=== PATIENT | female | born 2000 | race Caucasian/White ===

== ENCOUNTER 2022-05-12 13:45 | Emergency (ER) | payer BC, SELFPAY ==
[2022-05-12 14:05] VITALS: BP 132/80; PULSE 83; RESP 18; TEMP 36.6; O2SAT 99; BMI 27.7
--- NOTE | 2022-05-12 14:40 | EXP.UTC ---
Discharge Plan Disposition Patient Disposition: Home, Self-Care Condition: Good Prescriptions Prescriptions: New cephalexin [cephalexin] 500 mg tablet 500 mg PO BID 7 Days Qty: 14 0RF No Action cefdinir 300 MG capsule 300 mg PO BID Referrals Follow up/Referrals: Adin Lane MD [Primary Care Provider] - See instructions Activity Restrictions/Add. Instructions Additional Instructions/Restrictions: Increase fluids, water and not soda or tea. Can drink cranberry juice or cranberry extract. White front to back Wear cotton underwear Empty bladder after intercourse Start antibiotics immediately and make sure you take the full course although you may start to see improvement over the next 48 hours. You can eat yogurt or take probiotics to decrease diarrhea or yeast infection caused by the antibiotic Be sure to follow-up anytime for new or worsening symptoms in 48 hours for wound urine culture results be sure to let you PCP no recent urine for culture so they can request records and ensure that you have appropriate antibiotic if you are not getting better or getting worse. If symptoms worsen or do not improve return or be seen in the ER. Follow-up with primary care this week. Clinical Impressions Clinical Impression: UTI (urinary tract infection) Stand Alone Forms Stand Alone Forms: Work/School Release Instructions Patient Instructions: DI for Urinary Tract Infection (UTI) Discharge ED Provider: Zari ([facility])Ej [facility] [place] HPI General Stated complaint: back pain, no accident Mode of Arrival: Ambulatory Source of Information: Patient Limitations: No Limitations Time Seen by Provider: 05/12/22 14:40 Description of Symptoms (Recalled from Triage Doc. by RN): PATIENT C/O LOWER BACK PAIN THAT STARTED LAST NIGHT WHILE SHE WAS AT WORK HEENT Symptoms (Recalled from RN notes): No Resp Symptoms (Recalled from RN notes): No Skin Symptoms (Recalled from RN notes): No MS Symptoms (Recalled from RN notes): Yes Functional Status (Recalled from RN notes): WNL History of Present Illness Provider Complaint: 22 yr old female presents for low back pain that started last pm and became worse though out the night at work Related Data Home Medications Medication Instructions Recorded Confirmed cefdinir 300 mg capsule 300 mg PO BID EAR INFECTION 06/15/18 06/15/18 Previous Rx's Medication Instructions Recorded cephalexin 500 mg tablet 500 mg PO BID 7 days #14 tabs 05/12/22 Allergies Allergy/AdvReac Type Severity Reaction Status Date / Time lisinopril Allergy Verified 05/12/22 14:20 Sulfa (Sulfonamide Allergy Verified 06/15/18 09:40 Antibiotics) Worker's Comp Is this a Worker's Comp case?: No [facility] Disclaimer: The information contained in this section may have been updated after the patient was seen, as this information can be updated by other users. Social History , HIGHWAY DESIGN ENGINEER) Smoking Status: Smoker, status unknown alcohol intake: never current occupational status: other Travel in the last 8 weeks: None ROS Obtained: Yes All systems reviewed & no additional complaints except as documented Constitutional Constitutional: Reports system reviewed and no additional complaints, except as documented and Reports as per HPI Eyes Eyes: Reports system reviewed and no additional complaints, except as documented ENT Ears, Nose, Mouth, and Throat: Reports system reviewed and no additional complaints, except as documented Cardiovascular Cardiovascular: Reports system reviewed and no additional complaints, except as documented Respiratory Respiratory: Reports system reviewed and no additional complaints, except as documented Gastrointestinal Gastrointestingal: Reports system reviewed and no additional complaints, except as documented Genitourinary Female Genitourinary: Reports system reviewed and no additional complaints, except as documented a
[2022-05-12 14:50] VITALS: BP 132/80; PULSE 83; RESP 18; TEMP 36.6; O2SAT 99
[2022-05-12 14:54] LABS: Apearance,Urine Clear (Clear); Blood, Urine Negative (Negative); Color,Urine Yellow (Yellow); Glucose,Urine (UA) Negative (Negative); Ketones,Urine Negative (Negative); Protein,Urine Negative (Negative); Specific Gravity, Urine 1.025 (1.005-1.030)
[2022-05-12 14:55] LABS: UTC Pregnancy Test, Urine Negative (Negative)
[2022-05-12 14:55] LABS: Bilirubin,Urine Negative (Negative); UTC Leukocyte Esterase,Urine Trace (Negative); UTC Nitrate,Urine Negative (Negative); Urobilinogen,Urine 0.2 EU/dl (0.2)
== END 2022-05-12 14:53 | disposition home or self-care (01) ==
PROVIDERS: Emergency Provider Nurse Practitioner Family; PCP Emergency Medicine
DX: N39.0 Urinary tract infection, site not specified (principal); M54.50 Low back pain, unspecified
CPT/HCPCS: 81003; 81025; 87086; 99212; 99214; G0463

== ENCOUNTER 2022-05-14 18:33 | Emergency (ER) | payer BC, SELFPAY ==
[2022-05-14 18:35] VITALS: BP 149/106; PULSE 104; RESP 18; TEMP 36.6; O2SAT 97; BMI 38.5
--- NOTE | 2022-05-14 19:08 | PC.NURSE ---
notified ER MD of pt presenting s/s, no new orders obtained at this time.
[2022-05-14 19:30] VITALS: BP 162/104; PULSE 106; RESP 20; O2SAT 96
[2022-05-14 20:01] VITALS: BP 131/82; PULSE 91; RESP 18; O2SAT 96
[2022-05-14 20:30] VITALS: BP 146/72; PULSE 106; RESP 18; O2SAT 97
--- NOTE | 2022-05-14 20:45 | CT_ITS ---
PROCEDURE INFORMATION: Exam: CT Lumbar Spine Without Contrast Exam date and time: 05/14/2022 9:36 PM Age: 22 years old Clinical indication: Low back pain; Patient HX: C/O pain since Saturday; Additional info: Abdominal pain TECHNIQUE: Imaging protocol: Computed tomography of the lumbar spine without contrast. Radiation optimization: All CT scans at this facility use at least one of these dose optimization techniques: automated exposure control; mA and/or kV adjustment per patient size (includes targeted exams where dose is matched to clinical indication); or iterative reconstruction. REPORTING DATA: Count of CT and Cardiac NM exams in prior 12 months: This patient has received [address] and 0 known cardiac nuclear medicine studies in the 12 months prior to the current study. COMPARISON: CT ABDOMEN PELVIS WO CON 05/14/2022 9:33 PM FINDINGS: Bones/joints: Alignment near anatomic. No acute displaced fracture. Mild multilevel degenerative disc disease is present without high-grade compromise of the spinal canal. 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 Soft tissues: Unremarkable. IMPRESSION: No acute findings.
--- NOTE | 2022-05-14 20:45 | CT_ITS ---
PROCEDURE INFORMATION: Exam: CT Abdomen And Pelvis Without Contrast Exam date and time: 05/14/2022 9:33 PM Age: 22 years old Clinical indication: Abdominal pain TECHNIQUE: Imaging protocol: Computed tomography of the abdomen and pelvis without contrast. Radiation optimization: All CT scans at this facility use at least one of these dose optimization techniques: automated exposure control; mA and/or kV adjustment per patient size (includes targeted exams where dose is matched to clinical indication); or iterative reconstruction. REPORTING DATA: Count of CT and Cardiac NM exams in prior 12 months: This patient has received [address] and 0 known cardiac nuclear medicine studies in the 12 months prior to the current study. COMPARISON: CT LUMBAR SPINE WO CON 05/14/2022 9:36 PM FINDINGS: Liver: Normal. No mass. Gallbladder and bile ducts: Normal. No calcified stones. No ductal dilation. Pancreas: Normal. No ductal dilation. Spleen: Normal. No splenomegaly. Adrenal glands: Normal. No mass. Kidneys and ureters: Normal. No hydronephrosis. Stomach and bowel: Wall thickening versus underdistention in the transverse colon and proximal descending colon. No bowel obstruction. Appendix: No evidence of appendicitis. Intraperitoneal space: Unremarkable. No free air. No significant fluid collection. Vasculature: Unremarkable. No abdominal aortic aneurysm. Lymph nodes: Unremarkable. No enlarged lymph nodes. Urinary bladder: Mild bladder wall thickening with incomplete distention. Reproductive: Unremarkable as visualized. Bones/joints: Unremarkable. No acute fracture. Soft tissues: Unremarkable. IMPRESSION: 1. Underdistention versus wall thickening in the mid colon. Correlate for possible mild colitis. 2. Possible cystitis. Correlate with urinalysis.
--- NOTE | 2022-05-14 20:46 | HMH.EDGENADL ---
Discharge Plan Disposition Patient Disposition: Home, Self-Care Prescriptions Prescriptions: New prednisone [prednisone] 20 mg tablet 20 mg PO BID Qty: 10 0RF ketorolac 10 mg tablet 10 mg PO Q8H 3 Days Qty: 9 0RF No Action cephalexin [cephalexin] 500 mg tablet 500 mg PO BID 7 Days Qty: 14 0RF cefdinir 300 MG capsule 300 mg PO BID Referrals Follow up/Referrals: Provider,Referral, MD [Primary Care Provider] - See instructions Clinical Impressions Clinical Impression: Lumbar back pain, Sacro-iliac pain Instructions Patient Instructions: DI for Low Back Pain Discharge ED Provider: Brittnee (ED)[facility] Adult HPI General Chief complaint: PAIN Stated complaint: lower back pain, no known accident Time Seen by Provider: 05/14/22 20:46 Mode of Arrival: Ambulatory Source of Information: Patient and Medical Record Limitations: No Limitations Description of Symptoms (Recalled from ER Triage Doc. by RN): Pt reports lower back pain since saturday approx 9:45pm while at work. Pt reports unable to pinpoint a time of injury. States she was on a break at work when she noticed pain. Pt reports was seen in [facility] Saturday diagnosed with UTI. Pt reports pain is constant in nature in lower back but worse when trying to bend over or when she bend her neck down. History of Present Illness HPI narrative: localized lumbar pain since saturday with no def injury - no fever/rash /no gu or health information technologist sx/ saw [facility] and dx with possible uti - worse with certain mov Onset (ago): day(s) Location: back Severity: moderate Consistency: constant Associated symptoms: denies other symptoms Related Data Home Medications Medication Instructions Recorded Confirmed cefdinir 300 mg capsule 300 mg PO BID EAR INFECTION 06/15/18 06/15/18 Previous Rx's Medication Instructions Recorded cephalexin 500 mg tablet 500 mg PO BID 7 days #14 tabs 05/12/22 ketorolac 10 mg tablet 10 mg PO Q8H 3 days #9 tabs 05/14/22 prednisone 20 mg tablet 20 mg PO BID #10 tabs 05/14/22 Allergies Allergy/AdvReac Type Severity Reaction Status Date / Time lisinopril Allergy Verified 05/12/22 14:20 Sulfa (Sulfonamide Allergy Verified 06/15/18 09:40 Antibiotics) [facility] Disclaimer: The information contained in this section may have been updated after the patient was seen, as this information can be updated by other users. Social History (Updated 05/12/22 @ 14:48 by Ej Hameed ([facility]), ENGINE INSTALLER) Smoking Status: Never smoker alcohol intake: never current occupational status: other Travel in the last 8 weeks: None ROS Obtained: Yes All systems reviewed & no additional complaints except as documented Physical Exam General General appearance: alert Head Head exam: normocephalic Eye Eye exam: Present PERRL and EOMI ENT ENT exam: Present mucous membranes moist Neck Neck exam: Absent trachea midline Respiratory Respiratory exam: Absent respiratory distress Cardiovascular Cardiovascular exam: Present regular rate Abdominal Exam Abdominal exam: Present soft Extremities Exam Extremities exam: Present full ROM Back Exam Back exam: Present tenderness; Absent full ROM, CVA tenderness (R) or CVA tenderness (L) Neurological Exam Neurological exam: Present alert, oriented X3 and CN II-XII intact Skin Skin exam: Absent rash Medical Decision Making Medical Records Medical records reviewed: Yes I reviewed the patient's medical records. [place] Inquiry Pt receiving controlled substance: No Vital Signs: 05/14/22 18:35 05/14/22 19:30 05/14/22 20:01 Temperature 97.9 F Temperature Source Oral Pulse Rate 106 H 91 H Pulse Rate [Right Radial] 104 H Respiratory Rate 18 20 18 Blood Pressure 162/104 H 131/82 Blood Pressure [Right Arm] 149/106 H Blood Pressure Mean 110 100 Blood Pressure Mean [Right Arm] 120 Blood Pressure Source [Right Arm] Automatic Cuff Blood Pressure Position [Right Arm] Sitting 02 Sat b
[2022-05-14 21:01] VITALS: BP 126/79; PULSE 94; RESP 20; O2SAT 96
[2022-05-14 21:08] LABS: Basophils # 0.1 K/mm3 (0-0.2); Basophils % 0.8 % (0.1-2.0); Eosinophils # 0.4 K/mm3 (0.0-0.4); Eosinophils % 3.1 % (0.1-12.0); Hematocrit 40.7 % (37.0-47.0); Hemoglobin 13.5 g/dL (12.2-16.2); Lymphocytes # 2.7 K/mm3 (0.7-4.5); Mean Corpuscular HGB Conc 33.1 g/dL (31.8-35.4); Mean Corpuscular Hemoglobin 27.3 pg (27.0-31.2); Mean Corpuscular Volume 82.5 fl (81-99); Monocytes # 0.6 K/mm3 (0.1-1.0); Monocytes % 4.6 % (1.7-9.3); Neutrophils # 9.7 K/mm3 (1.8-7.8); Neutrophils % 71.6 % (37.0-80.0); Platelet Count 358 K/mm3 (142-424); Red Blood Count 4.93 M/mm3 (4.20-5.40); Red Cell Distribution Width 14.3 % (11.5-17.5); White Blood Count 13.5 K/mm3 (4.8-10.8)
[2022-05-14 21:10] LABS: Chloride 106 mmol/L (98-107); Potassium 4.1 mmoL/L (3.5-5.1); Sodium 140 mmol/L (136-145)
[2022-05-14 21:13] LABS: Alanine Aminotransferase 24 U/L (12-78); Albumin Level 4.6 g/dl (3.5-5.0); Albumin/Globulin Ratio 1.3 (1.1-1.8); Alkaline Phosphatase 45 U/L (38-126); Anion Gap 12.1 mEq/L (5-15); Aspartate Amino Transferase 22 U/L (14-36); Bilirubin,Total 0.2 mg/dl (0.2-1.3); Blood Urea Nitrogen 6 mg/dl (7-17); Calcium 9.3 mg/dl (8.4-10.2); Carbon Dioxide 26 mmol/L (22.0-30.0); Creatinine Clearance Estimated 316 mL/min (50-200); Estimated Glomerular Filt Rate 125 ml/min (>60); GFR (African American) 151 ML/MIN (>60); Globulin 3.6 g/dL (1.3-3.2); Glucose 83 mg/dl (74-100); Lipase 36 U/L (23-300); Total Protein,Serum 8.2 g/dl (6.3-8.2)
[2022-05-14 21:26] LABS: Urine Pregnancy, HCG Qual. Negative (Negative)
--- NOTE | 2022-05-14 22:01 | PC.NURSE ---
Rounded on patient , patient helped with needs voiced at this time.
[2022-05-14 22:21] LABS: Appearance,Urine CLEAR (Clear); Bilirubin,Urine Negative (Negative); Blood, Urine Negative (Negative); Color,Urine YELLOW (Yellow); Glucose,Urine (UA) Negative (Negative); Ketones,Urine Negative (Negative); Leukocyte Esterase,Urine Negative (Negative); Microscopic, Urine URINE MICROSCOPIC (MICROSCOPIC); Nitrate,Urine POSITIVE (Negative); Protein,Urine Negative (Negative); Specific Gravity, Urine 1.015 (1.005-1.030); Urobilinogen,Urine 0.2 EU/dl (0.2)
[2022-05-14 22:28] LABS: Bacteria,Urine Trace /lpf; Squamous Epithelial Cell,Urine Occasional #/hpf (0-5); WBC,Urine Occasional #/hpf (0-3)
[2022-05-14 22:30] VITALS: BP 126/80; PULSE 95; RESP 18; TEMP 36.6; O2SAT 99
== END 2022-05-14 22:33 | disposition home or self-care (01) ==
PROVIDERS: Emergency Provider Emergency Medicine
DX: M54.50 Low back pain, unspecified (principal); M46.1 Sacroiliitis, not elsewhere classified
CPT/HCPCS: 72131; 74176; 80053; 81001; 81025; 83690; 85025; 96374; 96375; 99284; 99285

== ENCOUNTER 2022-09-14 19:26 | Emergency (ER) | payer BC, SELFPAY ==
--- NOTE | 2022-09-14 19:29 | XR_ITS ---
PROCEDURE INFORMATION: Exam: XR Right Ankle Exam date and time: 09/14/2022 7:29 PM Age: 22 years old Clinical indication: Pain; Ankle; Right; Additional info: Twisted right ankle TECHNIQUE: Imaging protocol: Radiologic exam of the right ankle. Views: 3 or more views. COMPARISON: No relevant prior studies available. FINDINGS: Bones/joints: There are no lytic skeletal lesions seen. Accessory peroneal ossicle noted in the foot abutting the cuboid bone. Minimal ankle joint effusion visible. A faint 3 mm calcification projected lateral to the distal talus on AP series 1, which could be tiny cortical avulsion injury versus some soft tissue calcification. No other findings of fracture or dislocation. Minimal degenerative spurring of the distal anterior tibia at the ankle joint. Soft tissues: Mild soft tissue swelling.No radiopaque foreign bodies seen. IMPRESSION: 1. A faintly visible 3 mm calcification lateral to the distal talus which could be tiny cortical avulsion injury of indeterminate age, versus soft tissue calcification. 2. No other findings of acute fracture or dislocation at the ankle. 3. Minimal ankle joint effusion. 4. Soft tissue swelling.
[2022-09-14 19:30] VITALS: BP 131/79; PULSE 90; RESP 18; TEMP 36.7; O2SAT 98; BMI 37.0
--- NOTE | 2022-09-14 19:40 | EXP.UTC ---
Discharge Plan Disposition Patient Disposition: Home, Self-Care Condition: Good Prescriptions Prescriptions: No Action cephalexin [cephalexin] 500 mg tablet 500 mg PO BID 7 Days Qty: 14 0RF cefdinir 300 MG capsule 300 mg PO BID prednisone [prednisone] 20 mg tablet 20 mg PO BID Qty: 10 0RF ketorolac 10 mg tablet 10 mg PO Q8H 3 Days Qty: 9 0RF Referrals Follow up/Referrals: Adin Lane MD [Primary Care Provider] - See instructions Noam Boyd DO [Staff Physician] - See instructions (Call office for appointment) Activity Restrictions/Add. Instructions Additional Instructions/Restrictions: *weight bearing as tolerated *RICE, Rest the extremity, Ice 15-20 minutes 3-4 times daily, Compress- wear the horacio wrap as discussed as much as possible to help reduce swelling and pain, Elevate the extremity when at rest *Horacio wrap is for support and help control swelling, use it except in the shower. Be sure that is not to tight but not to loose either *Elevate when resting? *Ibuprofen as directed on package every 6-8 hours as needed for pain an inflammation. If need something more can take Tylenol in between doses of Ibuprofen to help Immediately follow up with your family doctor for new or worsening of symptoms, or no noticeable improvement over the next 3-5 days Clinical Impressions Clinical Impression: Avulsion injury Stand Alone Forms Stand Alone Forms: Work/School Release Instructions Patient Instructions: How to Use Crutches, How To Perform RICE (Rest, Ice, Compress, Elevate), Ibuprofen, How to Use a Walking Boot Discharge ED Provider: Hetal Doll [facility] [place] General Stated complaint: AO 09/14 1829 RT ankle twisted Mode of Arrival: Ambulatory Source of Information: Patient and Parent(s) Limitations: No Limitations Time Seen by Provider: 09/14/22 19:40 Description of Symptoms (Recalled from Triage Doc. by RN): PATIENT REPORTS STEPPING IN A HOLE WHILE WALKING AND TWISTED RIGHT ANKLE TONIGHT HEENT Symptoms (Recalled from RN notes): No Resp Symptoms (Recalled from RN notes): No Skin Symptoms (Recalled from RN notes): No MS Symptoms (Recalled from RN notes): Yes Functional Status (Recalled from RN notes): WNL History of Present Illness Provider Complaint: Patient states that she was walking through the yard earlier and stepped in a hole and twisted her right ankle States that she felt a pop and has been having pain in her ankle ever since so she came in to get it checked out Related Data Home Medications Medication Instructions Recorded Confirmed cefdinir 300 mg capsule 300 mg PO BID EAR INFECTION 06/15/18 06/15/18 Previous Rx's Medication Instructions Recorded cephalexin 500 mg tablet 500 mg PO BID 7 days #14 tabs 05/12/22 ketorolac 10 mg tablet 10 mg PO Q8H 3 days #9 tabs 05/14/22 prednisone 20 mg tablet 20 mg PO BID #10 tabs 05/14/22 Allergies Allergy/AdvReac Type Severity Reaction Status Date / Time lisinopril Allergy Verified 05/12/22 14:20 Sulfa (Sulfonamide Allergy Verified 06/15/18 09:40 Antibiotics) Worker's Comp Is this a Worker's Comp case?: No [facility] Disclaimer: The information contained in this section may have been updated after the patient was seen, as this information can be updated by other users. Social History (Updated 05/12/22 @ 14:48 by Ej Hameed ([facility]), EPIC RADIANT ANALYST) Smoking Status: Never smoker alcohol intake: never current occupational status: other Travel in the last 8 weeks: None ROS Obtained: Yes All systems reviewed & no additional complaints except as documented and Yes Systems reviewed as appropriate & no additional complaints except as documented Constitutional Constitutional: Reports system reviewed and no additional complaints, except as documented and Reports as per HPI Cardiovascular Cardiovascular: Reports system reviewed and no additional complaints, except as documented and Reports as per HPI Re
[2022-09-14 19:48] VITALS: BP 131/79; PULSE 90; RESP 18; TEMP 36.7; O2SAT 98
== END 2022-09-14 20:35 | disposition home or self-care (01) ==
PROVIDERS: Emergency Provider Nurse Practitioner; PCP Emergency Medicine
DX: S93.401A Sprain of unspecified ligament of right ankle, initial encounter (principal); X50.1XXA Overexertion from prolonged static or awkward postures, initial encounter
CPT/HCPCS: 73610; 99212; 99213; G0463